=== PATIENT | female | born 1965 | race Asian ===

== ENCOUNTER 2018-03-04 09:37 | Outpatient (CLI) | payer BC | END 2018-03-04 09:38 | disposition home or self-care (01) | LOC: BICMAMMO 09:37 | PROVIDERS: ATTEND Family Medicine | DX: Z12.31 Encounter for screening mammogram for malignant neoplasm of breast (principal); M47.892 Other spondylosis, cervical region; Z85.43 Personal history of malignant neoplasm of ovary | CPT/HCPCS: 72040; 77063; 77067 ==

== ENCOUNTER 2018-10-27 22:03 | Emergency (ER) | payer BC ==
[2018-10-27] MEDS ORDERED: Lidocaine Viscous Sol 2% 15 ml UD Cup ONE (23:02)
[2018-10-27] MEDS ORDERED: Mag-Al Plus 1200 MG/1200 MG/120 MG/30 ML UDCUP ONE (23:02)
--- NOTE | 2018-10-27 23:24 | RAD ---
NECK SOFT TISSUE TWO VIEW SERIES: INDICATIONS: Globus sensation. FINDINGS: No abnormal thickening of the prevertebral soft tissues. Dystrophic calcification is seen at the pos terior paraspinal soft tissues. Epiglottis is normal in caliber. Preepiglottic space is maintained. Incidental note of degenerative changes of the cervical spine. IMPRESSION: No abnormal prevertebral soft tissue thickening identified. POS: [facility]
== END 2018-10-27 23:20 | disposition home or self-care (01) ==
LOC: SCSER 22:03
DX: F45.8 Other somatoform disorders (principal)
CPT/HCPCS: 70360

== ENCOUNTER 2019-07-14 10:19 | Outpatient (CLI) | payer BC ==
--- NOTE | 2019-07-14 10:53 | BD ---
DEXA BONE DENSITY SCAN: DATE:07/14/2019. COMPARISON: None. HISTORY: Postmenopausal female undergoing screening for osteoporosis. Lumbar Spine: BMD (g/cm2) L1 0.855 T-Score: -1.2 L2 0.796 T-Score: -2.1 L3 0.871 T-Score: -1.9 L4 0.914 T-Score: -1.7 L1-L4 0.862 T-Score: -1.7 Femoral Neck: 0.664 T-Score: -1.7 Total Femur: 0.945 T-Score: 0.0 The FRAX fracture risk assessment tool reports a 10 year fracture risk in an untreated patient at 6.2 % for major osteoporotic fracture and 0.5% for hip fracture in an untreated patient. IMPRESSION: There is osteopenia within the lumbar spine and femoral neck correlating with a moderately increased risk for fracture. Transcribed Date/Time: 07/14/2019 11:15 AM
--- NOTE | 2019-07-14 12:12 | MMO ---
Bilateral MAMMO Bilat Screen [facility]. CLINICAL HISTORY: Patient is 53 years old and is seen for screening. The patient has no family history of breast cancer. The patient has a history of ovarian cancer at age 31. VIEWS: The views performed were: bilateral craniocaudal with tomosynthesis; bilateral mediolateral oblique with tomosynthesis; and right mediolateral oblique. FILMS COMPARED: The present examination has been compared to prior imaging studies performed at 06/05/2016 and 03/04/2018. This study has been interpreted with the assistance of computer-aided detection. MAMMOGRAM FINDINGS: There are scattered fibroglandular densities. There are stable benign appearing calcifications seen in both breasts. There are no suspicious masses, suspicious calcifications, or new areas of architectural distortion. IMPRESSION: THERE IS NO MAMMOGRAPHIC EVIDENCE OF MALIGNANCY. A ROUTINE FOLLOW-UP MAMMOGRAM IN 1 YEAR IS RECOMMENDED. THE RESULTS OF THIS EXAM WERE SENT TO THE PATIENT. ACR BI-RADS Category 2 - Benign finding MAMMOGRAPHY NOTE: 1. A negative mammogram report should not delay a biopsy if a dominant of clinically suspicious mass is present. 2. Approximately 10% to 15% of breast cancers are not detected by mammography. 3. Adenosis and dense breasts may obscure an underlying neoplasm. Reported by: JACOBO TERRAZAS MD Electonically Signed: [id number]
== END 2019-07-14 10:20 | disposition home or self-care (01) ==
LOC: BICMAMMO 10:19
PROVIDERS: ATTEND Family Medicine
DX: Z12.31 Encounter for screening mammogram for malignant neoplasm of breast (principal); M85.80 Other specified disorders of bone density and structure, unspecified site
CPT/HCPCS: 77063; 77067; 77080